=== PATIENT | male | born 1995 | race Caucasian/White ===

== ENCOUNTER 2019-04-30 04:52 | Emergency (ER) | payer OTHER ==
[~2019-04-30] VITALS: Ht 167.6 cm; Wt 78.0 kg
[2019-04-30 05:03] VITALS: BP 137/72
[2019-04-30] MEDS ORDERED: ONDANSETRON 4 MG/2 ML VIAL IVP ONE (05:25)
[2019-04-30] MEDS ORDERED: MORPHINE SULFATE 4 MG/ML SYR IVP ONE (05:25)
[2019-04-30 08:49] VITALS: BP 116/77
[2019-05-04 06:07] LABS: CHLAMYDIA TRACHOMATIS AMP DNA Negative (Negative)
== END 2019-04-30 08:49 | disposition home or self-care (01) ==
LOC: MED 04:52
DX: N50.811 Right testicular pain (principal); N50.812 Left testicular pain
CPT/HCPCS: 36415; 76870; 87491; 96374; 96375; 99284; J2270; J2405; Q0092